=== PATIENT | male | born 1990 | race Caucasian/White ===

== ENCOUNTER 2021-01-20 13:01 | Emergency (ER) | payer OTHER ==
[~2021-01-20] VITALS: Ht 172.7 cm; Wt 61.7 kg
--- NOTE | 2021-01-20 13:23 | NUR ---
[place], WAS FOUND ON THE FLOOR W. FRONTAL SCALP LACERATION. MINIMAL BLEEDING NOTED. PT NOTED W/ HAND TREMORS, C/O "FEELING SICK" STATES HE HAD LAST USE HEROIN 3 DAYS AGO AND IS HAVING WIDRAWALS. STABLE VITALS CRAWLER TRACTOR OPERATOR. AWAITING MD LOPEZ.
[2021-01-20] MEDS ORDERED: LIDOCAINE HCL/MPF 1% 30 ML VIAL IJ ONE (13:25)
--- NOTE | 2021-01-20 13:25 | NUR ---
DR BERNAL AT BEDSIDE FOR EVAL.
[2021-01-20] MEDS ORDERED: LIDOCAINE 1% INJ 50 ML MDV IJ ONE (13:30)
[2021-01-20] MEDS ORDERED: ONDANSETRON HCL/PF 4 MG/2 ML VIAL IV ONE (13:30)
[2021-01-20] MEDS ORDERED: IV NS 0.9% 1,000 ML IV ONE (13:30)
[2021-01-20] MEDS ORDERED: BUPRENORPHINE HCL 2 MG TAB.SUBL SL ONE ×2 (13:30→14:29)
[2021-01-20] MEDS ORDERED: LORAZEPAM INJ 2 MG/ML VIAL IV ONE (13:30)
[2021-01-20] MEDS ORDERED: ONDANSETRON HCL/PF 4 MG/2 ML VIAL ONE (13:40)
[2021-01-20] MEDS ORDERED: LORAZEPAM INJ 2 MG/ML VIAL ONE (13:42)
--- NOTE | 2021-01-20 13:54 | NUR ---
UNABLE TO START AN IV. PT IS RESTLESS AND HAVING TREMORS. DR BERNAL AWARE. ATIVAN GIVEN IM INSTEAD OF IVP.
[2021-01-20] MEDS ORDERED: NALO4SPR NS (14:18)
[2021-01-20] MEDS ORDERED: ONDA4TAB5 PO (14:18)
--- NOTE | 2021-01-20 15:39 | NUR ---
SS Consult : fruit or nut farm worker was called to evaluate this 39 year old male. SS consult requested for Heroin use. SW met pt. at bedside. The pt. is A&OX 2 and appears restless, anxious. Per EMR, admit to current heroin withdrawal. Pt. appears unkempt, disorganized, possible delusions. Patient is unbale to engage in meaningful conversation at this time possibly due to drug use. Patient was given a dose of Bubrenorphine by Dr. Casey Liu. This social work manager met with patient and provided him with referrals to: [facility]: [address] [place] [address] Intake hours: 5:45am-9:00am, walk-ins Sunday, Sunday, [facility]: [address] [place] [address] Intake hours: 5:45am-12:30pm, Sunday and [facility]: [address] [place] [id number] Intake hours: 8:00am-2:00pm, Sunday through Sunday Patient is under police custody and will be booked upon medical clearance. Officer # [id number] at bedside. SW encouraged pt. to seek Medication-Assisted Treatment ([facility] program) after if possible. It is unknown if pt. has received prior treatment for opioid dependence.fruit or nut farm worker provided her desk number for patient to call if he needs additional support, resources or assistance. Report was given to Maritza ZAMARRIPA
[2021-01-20 16:07] VITALS: BP 140/60
== END 2021-01-20 16:07 ==
LOC: ER 13:25
DX: S01.01XA Laceration without foreign body of scalp, initial encounter (principal); S09.8XXA Other specified injuries of head, initial encounter; F11.23 Opioid dependence with withdrawal; R00.0 Tachycardia, unspecified; W01.0XXA Fall on same level from slipping, tripping and stumbling without subsequent striking against object, initial encounter; W18.39XA Other fall on same level, initial encounter; Y93.89 Activity, other specified; Y92.89 Other specified places as the place of occurrence of the external cause; Y99.8 Other external cause status
CPT/HCPCS: 12001; 96374; 96375; 99284; A6403; J2060; J2405; J3490; J7030